=== PATIENT | male | born 1945 | race Caucasian/White ===

== ENCOUNTER 2022-03-22 10:00 | Outpatient (CLI) | payer MEDICARE, BC, SELFPAY ==
[2022-03-22 14:03] LABS: PSA Diagnostic* < 0.06 ng/mL (0.10-4.00)
== END 2022-03-22 10:01 | disposition home or self-care (01) ==
LOC: LAB 08-09 10:35
PROVIDERS: Visit Provider Internal Medicine
DX: R97.21 Rising PSA following treatment for malignant neoplasm of prostate (principal); C77.5 Secondary and unspecified malignant neoplasm of intrapelvic lymph nodes
CPT/HCPCS: 36415; 84153

== ENCOUNTER 2023-03-07 11:45 | Outpatient (CLI) | payer MEDICARE, BC, SELFPAY ==
[2023-03-07 12:53] LABS: PSA Diagnostic* < 0.06 ng/mL (0.10-4.00)
== END 2023-03-07 11:46 | disposition home or self-care (01) ==
PROVIDERS: Visit Provider Internal Medicine
DX: R97.21 Rising PSA following treatment for malignant neoplasm of prostate (principal)
CPT/HCPCS: 36415; 84153